=== PATIENT | male | born 1955 | race Caucasian/White ===

== ENCOUNTER 2019-04-12 06:17 | Day surgery (SDC) | payer OTHER ==
[~2019-04-12] VITALS: Ht 175.3 cm; Wt 60.9 kg
[~2019-04-12 06:17] MED LIST: ALBU8.5H8 IH; IPRAHFA IH; LEVO750T68 PO; LISI-618 PO; MONT10TA21 PO; PANT40TA25 PO; PRED10 PO; SODIUM CHLORIDE 0.9% 1,000 ML ONE; SYMB8060 IH
[2019-04-12] MEDS ORDERED: SODIUM CHLORIDE 0.9% 1,000 ML IV ONE (07:00)
[2019-04-12] MEDS ORDERED: MIDAZOLAM HCL 2 MG/2 ML VIAL ONE (07:32)
[2019-04-12] MEDS ORDERED: FentaNYL CITRATE-PF 100 MCG/2 ML VIAL ONE (07:32)
[2019-04-12] MEDS ORDERED: MethylPREDNISolone SOD SUCC 125 MG/2 ML VIAL IVP ONE (09:00)
[2019-04-12] MEDS ORDERED: MethylPREDNISolone SOD SUCC 125 MG/2 ML VIAL ONE (09:32)
[2019-04-12] MEDS ORDERED: LIDOCAINE 4% 50 ML SOLUTION ONE (15:54)
[2019-04-12] MEDS ORDERED: ALBUTEROL SULFATE 2.5 MG/0.5 ML NEB SOLUTION NEB ONE (15:54)
[2019-04-12] MEDS ORDERED: LIDOCAINE 2% 30 ML JELLY ONE (15:54)
[2019-04-12] MEDS ORDERED: BENZOCAINE 20% 50 MCG/SPRAY 57 GM ONE (15:54)
[2019-04-12] MEDS ORDERED: OXYGEN THERAPY IH SCH (20:00)
== END 2019-04-12 10:35 | disposition home or self-care (01) ==
LOC: SURGERY 06:17
PROVIDERS: ATTEND Internal Medicine Critical Care Medicine
DX: R05 Cough (principal); J47.9 Bronchiectasis, uncomplicated; J34.89 Other specified disorders of nose and nasal sinuses; J98.8 Other specified respiratory disorders; J38.4 Edema of larynx; B37.0 Candidal stomatitis; R19.00 Intra-abdominal and pelvic swelling, mass and lump, unspecified site; J44.9 Chronic obstructive pulmonary disease, unspecified; Z98.890 Other specified postprocedural states; Z72.89 Other problems related to lifestyle; Z79.899 Other long term (current) drug therapy; Z87.891 Personal history of nicotine dependence
CPT/HCPCS: 31623; 31624; 71045; 87015; 87070; 87101; 87205; 87206; 87220; 88184; 88185; J2250; J2930; J3010; J7030; 88108; 88312

== ENCOUNTER 2020-05-15 06:27 | Day surgery (SDC) | payer OTHER ==
[2020-05-13 13:26] LABS: COVID AG,FIA SOURCE NASOPHARYNGEAL
[~2020-05-15] VITALS: Ht 170.2 cm; Wt 56.4 kg
[~2020-05-15 06:27] MED LIST changes: +ALBU6.7H9 IH; -ALBU8.5H8 IH; +ATOR20TA65 PO; +BUDE10.26 PO; +GABA-1181 PO; +IPRA3AMP24 NEB; +IPRA4AER PO; -IPRAHFA IH; -LEVO750T68 PO; -LISI-618 PO; +LISI20TA24 PO; +MONT-35 PO; -MONT10TA21 PO; +OMEP20CA13 PO; -PANT40TA25 PO; -PRED10 PO; -SODIUM CHLORIDE 0.9% 1,000 ML ONE; -SYMB8060 IH
[2020-05-15] MEDS ORDERED: BENZOCAINE 20% 50 MCG/SPRAY 57 GM TP ONE (06:28)
[2020-05-15] MEDS ORDERED: LIDOCAINE 4% 50 ML SOLUTION TP ONE (06:28)
[2020-05-15] MEDS ORDERED: ALBUTEROL SULFATE 2.5 MG/0.5 ML NEB SOLUTION NEB ONE (06:28)
[2020-05-15] MEDS ORDERED: LIDOCAINE 2% 30 ML JELLY TP ONE (06:28)
[2020-05-15] MEDS ORDERED: SODIUM CHLORIDE 0.9% 1,000 ML IV ONE (06:30)
[2020-05-15] MEDS ORDERED: FentaNYL CITRATE PF 100 MCG/2 ML VIAL ONE (07:28)
[2020-05-15] MEDS ORDERED: MIDAZOLAM HCL 2 MG/2 ML VIAL ONE (07:28)
[2020-05-15] MEDS ORDERED: MethylPREDNISolone SOD SUCC 125 MG/2 ML VIAL IVP ONE (09:00)
[2020-05-15] MEDS ORDERED: MethylPREDNISolone SOD SUCC 125 MG/2 ML VIAL ONE (09:15)
[2020-05-15] MEDS ORDERED: OXYGEN THERAPY IH SCH (20:00)
== END 2020-05-15 10:30 | disposition home or self-care (01) ==
LOC: SURGERY 06:27
PROVIDERS: ATTEND Internal Medicine Critical Care Medicine
DX: J38.4 Edema of larynx (principal); B37.0 Candidal stomatitis; F17.210 Nicotine dependence, cigarettes, uncomplicated; J44.9 Chronic obstructive pulmonary disease, unspecified; E78.5 Hyperlipidemia, unspecified; I10 Essential (primary) hypertension; K21.9 Gastro-esophageal reflux disease without esophagitis; E78.00 Pure hypercholesterolemia, unspecified; Z79.899 Other long term (current) drug therapy; Z98.890 Other specified postprocedural states
CPT/HCPCS: 31623; 31624; 71045; 87015; 87070; 87101; 87205; 87206; 87220; 87426; 88108; 88184; 88185; 88312; C9803; J2250; J2930; J3010; J7613; Z7610